=== PATIENT | female | born 1960 | race Caucasian/White ===

== ENCOUNTER 2021-04-29 20:43 | Observation (INO) | payer OTHER ==
[~2021-04-29] VITALS: Ht 152.4 cm; Wt 77.1 kg
--- NOTE | 2021-04-29 20:47 | PHYS DOC ---
Past History Past Medical History: Hypertension General Adult HPI: HPI: ".. I am having an allergic reaction... I already took 50 mg Benadryl..." Patient is a 60 year old female who presents with allergic reaction. Suspect cause allergic reaction is due to to ingestion of lisinopril. Patient states s ymptoms started right after taking lisinopril tonight. Patient has been taking lisinopril for the past 5 years. No recent travel. No other new meds. No other new foods. No history of immunosuppression. Patient normally follows with Jolly Pimentel. Review of Systems: Review of Systems: Constitutional: Denies fever or chills Eyes: Denies change in visual acuity HENT: Complains of swollen tongue and lips. Respiratory: Denies cough or shortness of breath Cardiovascular: Denies chest pain or edema GI: Denies abdominal pain, nausea, vomiting, bloody stools or diarrhea : Denies dysuria Musculoskeletal: Denies back pain or joint pain Integument: Denies rash Neurologic: Denies headache, focal weakness or sensory changes Endocrine: Denies polyuria or polydipsia Lymphatic: Denies swollen glands Psychiatric: Denies depression or anxiety Family History: Family History: Noncontributory to presentation Current Medications: Current Meds: See nursing for home meds Allergies: Allergies: Allergic to Keflex, Zofran, and promethazine. Physical Exam: PE: Constitutional:moderated acute distress, non-toxic appearance. [] HENT: Normocephalic, atraumatic, bilateral external ears normal, oropharynx moist, no oral exudates, nose normal. Slightly swollen lips and RT side of tongue Eyes: PERRLA, EOMI, conjunctiva normal, no discharge. [] Neck: Normal range of motion, no tenderness, supple, no stridor. [] Cardiovascular:Heart rate regular rhythm, no murmur [] Lungs & Thorax: Bilateral breath sounds equal with few scattered wheezes. Abdomen: Bowel sounds normal, soft, no tenderness, no masses, no pulsatile masses. [] Skin: Warm, dry, no erythema, no rash. [] Back: No tenderness, no CVA tenderness. [] Extremities: No tenderness, no cyanosis, no clubbing, ROM intact, no edema. [] Neurologic: Alert and oriented X 3, normal motor function, normal sensory function, no focal deficits noted. [] Psychologic: Affect normal, judgement normal, mood normal. [] EKG: EKG: My interpretation EKG shows sinus rhythm at 73 bpm. No findings acute STEMI of contralateral changes. Time as his EKG is 2107 hrs. [] Radiology/Procedures: Radiology/Procedures: [][address] [address] IMAGING REPORT Signed PATIENT: RAI SANTIAGO LACCOUNT: [id number] : 1960 LOCATION: ER AGE: 60 SEX: F EXAM STATUS: REG ER ORD. PHYSICIAN: LEXA WATTS MD REASON: Possible allergic reaction, tongue swelling, chest pain PROCEDURE: PORTABLE CHEST 1V EXAM: AP View of the chest DATE: 04/29/2021 9:00 PM INDICATION: Reason: Possible allergic reaction, tongue swelling, chest pain / Spl. Instructions: / History: COMPARISON: No Prior FINDINGS: The heart is not enlarged. Aorta is tortuous. No focal parenchymal airspace opacity. No pleural effusion or pneumothorax. IMPRESSION: 1. No radiographic evidence for acute cardiopulmonary process. Electronically signed by: Parker Malin MD (04/29/2021 9:42 PM) [facility] DICTATED AND SIGNED BY: PARKER MALIN MD DATE: 04/29/212140 CC: LEXA WATTS MD; KENDRA PIMENTEL ~MTH0 0 Heart Score: C/O Chest Pain: N/A HEART Score for Chest Pain: HEART Score for Chest Pain Response (Comments) Value History Slighlty/Non-Suspicious 0 ECG Normal 0 Age < 45 0 Risk Factors 1 or 2 Risk Factors 1 Troponin < Normal Limit 0 Total 1 Risk Factors: Risk Factors: DM, Current or recent (<one month) smoker, HTN, HLP, family history of CAD, obesity. Risk Scores: Score 0 - 3: 2.5% MACE over next 6 weeks - Discharge Home Score 4 - 6: 20.3% MACE over next 6 weeks - Admit for Clinical Observation Score 7 - 10: 72.7% MACE over next 6 weeks - Early Invasive Strategies Course & Med Decision Making: Course & Med Decision Making Pertinent Labs and Imaging studies reviewed. (See chart for details) On recheck approximately 1 hour after in ED both sides of tongue had become swollen. No stridor however was appreciated Note pt. registered under name Julio Cesar, but by time of admit advised to register her under the name Radha. Discussed presentation, testing and treatment plan with . Advised to admit under his name and continue angioedema tx. Impression: 1. Angioedema- Suspect induced by Lisinopril. 2. HTN [] Dragon Disclaimer: Dragon Disclaimer: This electronic medical record was generated, in whole or in part, using a voice recognition dictation system. Departure Departure: Referrals: KENDRA PIMENTEL (PCP) Carissa Disclaimer This chart was dictated in whole or in part using Voice Recognition software in a busy, high-work load, and often noisy Emergency Department environment. It may contain unintended and wholly unrecognized errors or omissions. Dragon Disclaimer This chart was dictated in whole or in part using Voice Recognition software in a busy, high-work load, and often noisy Emergency Department environment. It may contain unintended and wholly unrecognized errors or omissions. LEXA WATTS MD Apr 29, 2021 20:47
[2021-04-29] MEDS ORDERED: IPRATRPIUM/ALBUTEROL 0.5/2.5MG 3 ML NEBU. NEB ONE (21:00)
[2021-04-29] MEDS ORDERED: methylPREDNISolone SOD SUCC PF 125 MG/2 ML VIAL. IV ONE (21:00)
[2021-04-29] MEDS ORDERED: FAMOTIDINE 20 MG/2 ML VIAL IVP ONE (21:00)
[2021-04-29] MEDS: IV RINGERS SOLUTION,LACTATED 1,000 ML IV SCH (21:10)
[2021-04-29] MEDS ORDERED: MAGNESIUM HYDROXIDE 2,400 MG/30 ML ORAL.SUSP. PO ONE (21:15)
[2021-04-29 21:17] LABS: BASO # 0.1 x10^3/uL (0.0-0.2); BASO % 1 % (0-3); EOS # 0.2 x10^3/uL (0.0-0.7); EOS % 2 % (0-3); HEMATOCRIT 45.7 % (36.0-47.0); HEMOGLOBIN 15.4 g/dL (12.0-15.5); LYMPH # 2.3 x10^3/uL (1.0-4.8); LYMPH % 22 % (24-48); MEAN CORPUSCULAR HEMOGLOBIN 30 pg (25-35); MEAN CORPUSCULAR HGB CONC 34 g/dL (31-37); MEAN CORPUSCULAR VOLUME 88 fL (79-100); MONO # 0.7 x10^3/uL (0.0-1.1); MONO % 7 % (0-9); NEUT # 7.1 x10^3uL (1.8-7.7); NEUT % 69 % (31-73); PLATELET COUNT 304 x10^3/uL (140-400); RED BLOOD COUNT 5.22 x10^6/uL (3.50-5.40); RED CELL DISTRIBUTION WIDTH 15.2 % (11.5-14.5); WHITE BLOOD COUNT 10.4 x10^3/uL (4.0-11.0)
[2021-04-29 21:26] LABS: CREATININE 0.9 mg/dL (0.6-1.0); GFR 63.4
[2021-04-29 21:40] LABS: ALBUMIN 3.7 g/dL (3.4-5.0); DIRECT BILIRUBIN 0.1 mg/dL (0.0-0.2); MAGNESIUM 2.4 mg/dL (1.8-2.4); TOTAL BILIRUBIN 0.3 mg/dL (0.2-1.0); TOTAL PROTEIN 7.3 g/dL (6.4-8.2)
--- NOTE | 2021-04-29 21:40 | EKG ---
[address] [address] Test Date: 2021-04-29 Test Time: 21:07:07 Pat Name: RAI SANTIAGO Department: Room: Gender: F Catering Staff Member: TOM : 1960 Requested By: LEXA WATTS Order Number: [id number] Reading MD: Chris Ellsworth Measurements Intervals [place] Rate: 73 P: 57 AK: 168 QRS: 53 QRSD: 80 T: 35 QT: 400 QTc: 444 Interpretive Statements SINUS RHYTHM Electronically Signed On 05-02-2021 16:19:30 ASSISTANT QUALITY MANAGER by Chris Ellsworth
--- NOTE | 2021-04-29 21:44 | RAD ---
EXAM: AP View of the chest DATE: 04/29/2021 9:00 PM INDICATION: Reason: Possible allergic reaction, tongue swelling, chest pain / Spl. Instructions: / H istory: COMPARISON: No Prior FINDINGS: The heart is not enlarged. Aorta is tortuous. No focal parenchymal airspace opacity. No pleural effusion or pneumothorax. IMPRESSION: 1. No radiographic evidence for acute cardiopulmonary process. Electronically signed by: Parker Wagner MD (04/29/2021 9:42 PM) ALINA
[2021-04-29 23:05] LABS: BARBITURATES NEG (NEG); BENZODIAZEPINES NEG (NEG); CANNABINOIDS NEG (NEG); COCAINE NEG (NEG); METHADONE NEG (NEG); OPIATES NEG (NEG); PHENCYCLIDINE NEG (NEG)
[2021-04-29 23:10] LABS: AMPHETAMINE/METHAMPHETAMINE NEG (NEG)
[2021-04-29 23:19] LABS: BACTERIA,URINE 0 /HPF (0-FEW); BILIRUBIN,URINE NEG (NEG); CLARITY,URINE CLEAR; COLOR,URINE YELLOW; GLUCOSE,URINE NEG (NEG); NITRITE,URINE NEG (NEG); RBC,URINE 0 /HPF (0-2); SQUAMOUS EPITHELIAL CELL,UR OCC /LPF; UROBILINOGEN,URINE 0.2 mg/dL (0.2 mg/dL); WBC,URINE OCC /HPF (0-4)
[2021-04-30] MEDS ORDERED: cloNIDine TTS-2 1 PATCH PATCH TD ONE (00:30)
[2021-04-30] MEDS ORDERED: ONDANSETRON PF 4 MG/2 ML VIAL. IVP PRN (00:30)
--- NOTE | 2021-04-30 04:20 | NUR ---
Arrives to ICU Rm 1 via gurney from ED in stable condition; VSS, A&Ox4; mild swelling noted to tongue, pt states this is improved from arrival at ED; denies SOA or difficulty swallowing; admission history and room orientation complete; resting without c/o at present.
[2021-04-30] MEDS ORDERED: SERT100T PO (05:24)
[2021-04-30] MEDS ORDERED: TRAZADONE (05:24)
[2021-04-30] MEDS ORDERED: PANT40TA3 PO (05:24)
[2021-04-30] MEDS ORDERED: LISI1TAB35 PO (05:24)
[2021-04-30] MEDS ORDERED: CETI10TA74 PO (05:24)
[2021-04-30] MEDS ORDERED: MONT10TA80 PO (05:24)
[2021-04-30] MEDS ORDERED: CYCL10TA19 PO (05:24)
[2021-04-30 05:27] VITALS: BP 173/104
[2021-04-30] MEDS: IV RINGERS SOLUTION,LACTATED 1,000 ML IV SCH (05:27)
[2021-04-30] MEDS: cloNIDine HCL 0.2 MG TABLET PO PRN ×2 (05:28→06:30)
[2021-04-30] MEDS: cloNIDine TTS-2 1 PATCH PATCH TD SCH ×2 (05:45→09:00)
--- NOTE | 2021-04-30 06:23 | NUR ---
Spoke with regarding hypertension since arrival in ED with current BP 181/101; clonidine transdermal patch applied in ED, order rec'd for PO clonidine to give now; will continue to monitor.
[2021-04-30] MEDS: IPRATRPIUM/ALBUTEROL 0.5/2.5MG 3 ML NEBU. NEB SCH ×2 (06:31→12:00)
[2021-04-30 07:48] VITALS: BP 151/83
[2021-04-30] MEDS: diphenhydrAMINE 50 MG/ML VIAL IVP SCH ×2 (08:04→13:00)
[2021-04-30] MEDS ORDERED: methylPREDNISolone SOD SUCC PF 125 MG/2 ML VIAL. IV ONE (09:00)
[2021-04-30] MEDS ORDERED: FAMOTIDINE 20 MG/2 ML VIAL IVP ONE (09:00)
[2021-04-30] MEDS ORDERED: LOSA50TA86 PO (13:49)
[2021-04-30] MEDS ORDERED: FAMO20TA5 PO (13:49)
[2021-04-30 13:52] VITALS: BP 146/82
[2021-04-30] MEDS ORDERED: CYCLOBENZAPRINE 10 MG TABLET. PO SCH (14:00)
--- NOTE | 2021-04-30 14:06 | SSS ---
DATE OF SERVICE: 04/30/2021 ADMIT DATE: 04/30/2021 HISTORY OF PRESENT ILLNESS: The patient is a 60-year-old female patient who presented to the Emergency Room with a complaint of allergic reaction due to ingestion of lisinopril. She said symptoms started right after taking lisinopril last night. The patient has been taking lisinopril for the last 5 years. No recent travel, no other new medication, no other new foods. No history of immunosuppression. She normally follows with Irlanda Muñoz. She was evaluated in the Emergency Room. She came with marked tongue swelling and also lips were swollen; however, the patient did not have any shortness of breath. She was able to talk, finish her sentence and was able to eat and drink. The patient was treated in the Emergency Room with Solu-Medrol as well as famotidine and Benadryl and she did actually very well. By the time I saw her in the afternoon, she had lip swelling and tongue swelling has completely subsided. She was able to talk, eat without any difficulty. She was maintaining her oxygen saturation at 96% and therefore, a decision was made to discharge her home to continue on the tapering course of steroids as well as H2 blockers with a clear instruction to avoid SAMSON inhibitors and she will be switched to losartan that does not cause the side effect. PAST MEDICAL HISTORY: Significant for hypertension. She said also that she is borderline diabetic, has bronchial asthma as well as gastroesophageal reflux disease. PAST SURGICAL HISTORY: Significant for tubal ligation. ALLERGIES: SHE IS ALLERGIC TO CEPHALEXIN, ONDANSETRON, PROMETHAZINE WELL LISINOPRIL. MEDICATIONS: She was on the following medications, cetirizine for Zyrtec 10 mg once a day, cyclobenzaprine 10 mg 3 times a day, lisinopril/hydrochlorothiazide 10/12.5 mg once a day, sertraline 150 mg once a day, montelukast 10 mg at bedtime, Protonix 40 mg once a day. FAMILY HISTORY: Noncontributory. SOCIAL HISTORY: She lives with her mother and her granddaughter. PHYSICAL EXAMINATION: GENERAL: On examining her, she looked well and was clearly in no apparent respiratory distress. No pallor, jaundice, cyanosis or thyromegaly. No jugular venous distention. No limb edema. VITAL SIGNS: Her heart rate on discharge was 78, blood pressure was 151/83, temperature was 98.1, respiratory rate was 14 and oxygen saturation was 95% on room air. HEAD, EYES, EARS, NOSE AND THROAT: Normocephalic, atraumatic. NECK: Supple. HEART: Normal first and second heart sounds. No gallop, rub or murmur. CHEST: Shows central trachea, equal bilateral chest expansion, air entry, vesicular breath sounds. No crepitation or rhonchi. ABDOMEN: Distended, soft, nontender. NEUROLOGIC: She is awake, alert, responding appropriately. All cranial nerves intact. She moves extremities without difficulty. She ambulates without assistance or assistive devices. LABORATORY DATA: Showed a white cell count of 10,000, hemoglobin 15, hematocrit 45, MCV 88 and platelet count of 304,000 with a manual differential showed 69% polymorphs and 2% lymphocytes, 7% monocytes. Her chemistry showed a serum sodium 131, potassium 4, chloride 94, bicarbonate 28, anion gap of 9, BUN 10, creatinine 0.9. Estimated GFR was 63 mL per minute. Her glucose 110, calcium was 9, magnesium was 2.4. Total bilirubin, AST, ALT, alkaline phosphatase were normal. Total protein 7.3, albumin 3.7. Her APTT was 27. Urinalysis essentially unremarkable and toxic screen was essentially negative. Her coronavirus by PCR was negative. ASSESSMENT AND PLAN: The patient will be discharged home to continue on losartan potassium 50 mg once a day. I will discontinue her lisinopril. She should follow with her primary care physician and return to work on Wednesday 05/02. PARAMJIT DR: Karime TID: [id number]
--- NOTE | 2021-04-30 14:30 | NUR ---
VSS. CARMONA. Pt denies difficulty swallowing, talking, or breathing. No slurred speech or edema noted to tongue. Discharge orders placed per Dr. Dial this afternoon. Famotidine, Losartan, and Medrol Dose pack sent to pharmacy. Pts family member to pick pt up. IV discontinued. Discharge education provided. Pt discharged @ 1430.
[2021-04-30] MEDS ORDERED: MONTELUKAST 10 MG TABLET. PO SCH (21:00)
[2021-05-01] MEDS ORDERED: CETIRIZINE HCL 10 MG TABLET PO SCH (09:00)
[2021-05-01] MEDS ORDERED: SERTRALINE 100 MG TABLET. PO SCH (09:00)
[2021-05-01] MEDS ORDERED: PANTOPRAZOLE 40 MG TABLET. PO SCH (09:00)
== END 2021-04-30 14:30 | disposition home or self-care (01) ==
LOC: ER 20:43 → INTOOBSV 04-30 04:35 → ICU 04-30 04:35
PROVIDERS: ADMIT Hospitalist; ATTEND Hospitalist
DX: T78.3XXA Angioneurotic edema, initial encounter (principal); Z20.822 Contact with and (suspected) exposure to COVID-19; R22.0 Localized swelling, mass and lump, head; T46.4X5A Adverse effect of angiotensin-converting-enzyme inhibitors, initial encounter; I10 Essential (primary) hypertension; K21.9 Gastro-esophageal reflux disease without esophagitis; F17.210 Nicotine dependence, cigarettes, uncomplicated; Z98.51 Tubal ligation status; Z79.899 Other long term (current) drug therapy
CPT/HCPCS: 71045; 80048; 80076; 80307; 81001; 82550; 83690; 83735; 83880; 84443; 85025; 85730; 87426; 93005; 94640; 96374; 96375; 96376; 99285; 99406; G0378; J1200; J2930; J3490; J7120; U0003; G0379